=== PATIENT | female | born 1995 | race Two or more races ===

== ENCOUNTER → 2017-03-28 09:04 | Outpatient (CLI) | payer OTHER ==
--- NOTE | 2017-03-28 09:49 | NUR ---
NUTRITION EDUCATION FOR LEE: Pt and present for instruction of consistent CHO diet. Diet recall reveals pt is drinking a lot of juice and regular soda daily. Pt also drinks some sweet tea at times. Pt eats yogurt and does eat some nonstarchy vegetables most days. Pt is skipping meals due to nausea. Pt has had some extreme lows in the mornings due to not eating correctly. Reviewed CHO containing foods and the affect CHO have on glucose. Reviewed portion sizes of common CHO foods. Stressed the importance of consistent meals times to keep glucose under good control. Advised pt to eliminate all sugary drinks and drink only water to quench thrist. Also advised pt to eat an HS snack every night to, hopefully, prevent low glucose readings in the morning. Reviewed sample menus with emphasis on CHO foods and meal timing. Answered pts questions. Pt and spouse with good understanding of inforamtion provided. I think pt will be compliant with recommendations. Provided pt with printed diet information and RDN name and phone number. RDN will be available if needed. Thank you for the consult.
== END ==
LOC: D.FANS 09:00
DX: O24.919 Unspecified diabetes mellitus in pregnancy, unspecified trimester (principal)

== ENCOUNTER → 2017-05-01 14:05 | Outpatient (CLI) | payer OTHER ==
[2017-05-01 14:54] LABS: APPEARANCE CLEAR (CLEAR); BILIRUBIN NEGATIVE (NEGATIVE); COLOR YELLOW (YELLOW); GLUCOSE NEGATIVE (NEGATIVE); KETONE NEGATIVE (NEGATIVE); LEUKOCYTE ESTERASE NEGATIVE (NEGATIVE); NITRITE POSITIVE (NEGATIVE); PROTEIN NEGATIVE (NEGATIVE); SPECIFIC GRAVITY 1.005 (1.005-1.020); UROBILINOGEN NORMAL (NORMAL)
[2017-05-01 14:57] LABS: BACTERIA FEW /hpf (NONE SEEN); EPITHELIAL CELLS 0-5 /hpf (0-5); WHITE CELLS - URINE RARE /hpf (0-5)
== END | disposition home or self-care (01) ==
LOC: D.LDO 14:05
PROVIDERS: Obstetrics & Gynecology
DX: Z34.03 Encounter for supervision of normal first pregnancy, third trimester (principal); Z3A.34 34 weeks gestation of pregnancy

== ENCOUNTER → 2017-05-11 11:16 | Outpatient (CLI) | payer OTHER | END | disposition home or self-care (01) | LOC: D.LDO 11:16 | DX: O36.5930 Maternal care for other known or suspected poor fetal growth, third trimester, not applicable or unspecified (principal); Z3A.35 35 weeks gestation of pregnancy ==

== ENCOUNTER → 2020-02-24 15:48 | Outpatient (CLI) | payer OTHER | END | disposition home or self-care (01) | LOC: D.LDO 15:48 | PROVIDERS: ATTEND Obstetrics & Gynecology | DX: O24.419 Gestational diabetes mellitus in pregnancy, unspecified control (principal); Z3A.34 34 weeks gestation of pregnancy ==

== ENCOUNTER 2020-03-22 08:47 | Outpatient (CLI) | payer OTHER | END 2020-03-22 09:20 | disposition home or self-care (01) | LOC: D.LDO 08:47 | PROVIDERS: ATTEND Obstetrics & Gynecology | DX: O24.419 Gestational diabetes mellitus in pregnancy, unspecified control (principal); Z3A.33 33 weeks gestation of pregnancy ==

== ENCOUNTER 2020-03-29 09:44 | Outpatient (CLI) | payer OTHER | END 2020-03-29 10:35 | disposition home or self-care (01) | LOC: D.LDO 09:44 | PROVIDERS: ATTEND Obstetrics & Gynecology | DX: O24.419 Gestational diabetes mellitus in pregnancy, unspecified control (principal); Z3A.34 34 weeks gestation of pregnancy ==

== ENCOUNTER 2020-04-07 11:53 | Outpatient (CLI) | payer OTHER | END 2020-04-07 12:59 | disposition home or self-care (01) | LOC: D.LDO 11:53 | PROVIDERS: ATTEND Obstetrics & Gynecology | DX: O24.419 Gestational diabetes mellitus in pregnancy, unspecified control (principal); Z3A.35 35 weeks gestation of pregnancy ==

== ENCOUNTER 2020-04-13 11:45 | Outpatient (CLI) | payer OTHER | END 2020-04-13 12:14 | disposition home or self-care (01) | LOC: D.LDO 11:45 | PROVIDERS: ATTEND Obstetrics & Gynecology | DX: O24.419 Gestational diabetes mellitus in pregnancy, unspecified control (principal); Z3A.36 36 weeks gestation of pregnancy ==

== ENCOUNTER 2020-04-18 14:26 | Inpatient (IN) | payer OTHER ==
[~2020-04-18] VITALS: Ht 162.6 cm; Wt 101.6 kg
[2020-04-18 15:52] LABS: HEMATOCRIT 37.9 % (36.0-48.0); HEMOGLOBIN 12.1 g/dL (12-16); MCH 28.4 pg (26.0-34.0); MCHC 31.9 g/dL (31.0-37.0); MEAN PLATELET VOLUME 10.3 fL (7.4-10.4); RBC 4.26 10x6/uL (4.00-5.40); RDW 13.6 % (11.5-14.5); WBC 11.5 10x3/uL (4.8-10.8)
[2020-04-18 16:02] LABS: UDS - AMPHET NEGATIVE QUAL (NEGATIVE); UDS - BARB NEGATIVE QUAL (NEGATIVE); UDS - BENZO NEGATIVE QUAL (NEGATIVE); UDS - COCAINE NEGATIVE QUAL (NEGATIVE); UDS - OPIATE NEGATIVE QUAL (NEGATIVE); UDS - PCP NEGATIVE QUAL (NEGATIVE); UDS - THC NEGATIVE QUAL (NEGATIVE)
[2020-04-18] MEDS ORDERED: GLYBURIDE5 M1 PO (16:13)
[2020-04-18] MEDS ORDERED: PRENAVITE1 TAB PO (16:14)
[2020-04-18 20:08] VITALS: BP 107/63; Ht 162.6 cm; Wt 101.6 kg
--- NOTE | 2020-04-19 04:20 | NUR ---
ASSISTED PT UP TO BATHROOM, SHE DENIES ANY DIZZINESS WITH AMBULATION. GAVE PT PANTIES AND PADS, SHE DENIED ANY FURTHER NEEDS.
[2020-04-19 05:37] LABS: BASOPHILS 0.1 % (0-2); EOSINOPHILS 0.1 % (0-7); HEMATOCRIT 34.9 % (36.0-48.0); IMMATURE GRANULOCYTES 0.6 % (0-5); LYMPHOCYTES 13.5 % (15-50); MCH 27.8 pg (26.0-34.0); MCHC 31.5 g/dL (31.0-37.0); MCV 88.4 fL (80.0-100.0); MEAN PLATELET VOLUME 10.3 fL (7.4-10.4); MONOCYTES 4.8 % (2-11); NEUTROPHILS 80.9 % (40-80); PLATELET COUNT 294 10x3/uL (130-400); RBC 3.95 10x6/uL (4.00-5.40); RDW 13.5 % (11.5-14.5)
[2020-04-19 05:57] LABS: WBC 16.1 10x3/uL (4.8-10.8)
--- NOTE | 2020-04-19 07:17 | NUR ---
BEDSIDE REPORT REC'D FROM Lois COPELAND RN. PT REC'D RESTING WITH EYES CLOSED, EASILY AROUSES TO VOICE. DENIES NEEDS. STATES THAT INFANT WILL FEED IN 15 MINUTES AND REQUEST ASSESSMENT BE DONE AT THAT TIME. DENIES NEEDS AT THIS TIME. BED IN LOW POSITION WITH SRUP X2. CALL LIGHT AND PHONE WITHIN REACH. WILL CONTINUE TO MONITOR.
[2020-04-19 08:19] VITALS: BP 115/6
--- NOTE | 2020-04-19 08:19 | NUR ---
VSS. FUNDUS FIRM MIDLINE AND U2 WITH SMALL AMT RUBRA LOCHIA, NO CLOTS NOTED. CHOCOLATE MILK REQUESTED PER PT REQUEST AND MOTRIN PROVIDED FOR C/O ABD PAIN 01/24. DENIES ADDITIONAL NEEDS. BED IN LOW POSITION WITH SRUP X2. CALL LIGHT AND PHONE WITHIN REACH. WILL CONTINUE TO MONITOR.
[2020-04-19 09:32] VITALS: BP 110/67
--- NOTE | 2020-04-19 09:32 | NUR ---
PT SITTING UP IN BED. VSS. HRRR WITHOUT AUDIBLE MURMUR. BBS CLEAR. BS X 4. ABDOMEN SOFT/NON-DISTENDED. FUNDUS FIRM AT U/2. RUBRA LOCHIA MOD AMT. NO CLOTS EXPRESSED. PERINEUM WITHOUT EDEMA. NEG HOMANS' SIGN. PPP. MILD, NON-PITTING EDEMA NOTED TO BLE. SL SITE CLEAR. PT STATES ABDOMINAL CRAMPING OF "2" ON 0-10 PAIN SCALE. STATES FEELING BETTER SINCE RECEIVING MOTRIN. PT DENIES NEEDS OR C/O. SR UP X 2. CALL LIGHT IN REACH.
--- NOTE | 2020-04-19 11:30 | NUR ---
PT SITTING UP IN BED. CARING FOR INFANT. DENIES PAIN OR NEEDS.
--- NOTE | 2020-04-19 12:47 | NUR ---
DR OCONNELL VISITS WITH PT.
--- NOTE | 2020-04-19 13:01 | NUR ---
PT UP TO SHOWER. LINENS CHANGED.
--- NOTE | 2020-04-19 14:00 | NUR ---
PT SITTING UP IN BED. PUMPING BREASTMILK AT THIS TIME. DENIES C/O. REQUESTS AND RECEIVES ICE WATER.
[2020-04-19 16:17] VITALS: BP 109/67
--- NOTE | 2020-04-19 16:24 | NUR ---
PT LYING IN SEMI-DAUGHERTY'S POSITION IN BED. AWAKE. VSS. FUNDUS FIRM AT U/2. RUBRA LOCHIA SMALL AMT. C/O ABDOMINAL CRAMPING. MOTRIN 600 MG GIVEN PO ORDERED. PT INSTRUCTED ON MED. VERBALIZES UNDERSTANDING.
--- NOTE | 2020-04-19 18:10 | NUR ---
PT SITTING UP IN BED. CARING FOR INFANT. DENIES C/O OR NEEDS.
[2020-04-19 19:30] VITALS: BP 103/66
--- NOTE | 2020-04-19 19:30 | NUR ---
pt resting quietly in bed, denies any pain rates 0/10. awake and alert. lung sounds clear bilaterally, heart rate regular, abd soft, fundus firm 2 fb below um, with small amt of rubra lochia. no pedal swelling. VSS. at bedside along with family.
--- NOTE | 2020-04-19 22:43 | NUR ---
pt continues resting denies any needs or complaints. currently pumping breast.
--- NOTE | 2020-04-20 01:22 | NUR ---
pt resting quietly with eyes closed, no distress noted.
--- NOTE | 2020-04-20 04:28 | NUR ---
pt sitting up quietly tending to , denies any needs or requests.
--- NOTE | 2020-04-20 06:00 | NUR ---
Pt awake, c/o cramping Motrin 600 mg given for discomfort. fasting blood glucose 84.
[2020-04-20 06:06] LABS: BASOPHILS 0.2 % (0-2); EOSINOPHILS 0.8 % (0-7); HEMATOCRIT 38.1 % (36.0-48.0); HEMOGLOBIN 12.2 g/dL (12-16); IMMATURE GRANULOCYTES 0.5 % (0-5); LYMPHOCYTES 32.6 % (15-50); MCH 28.3 pg (26.0-34.0); MCV 88.4 fL (80.0-100.0); MEAN PLATELET VOLUME 10.1 fL (7.4-10.4); MONOCYTES 4.7 % (2-11); NEUTROPHILS 61.2 % (40-80); PLATELET COUNT 289 10x3/uL (130-400); RBC 4.31 10x6/uL (4.00-5.40); RDW 13.8 % (11.5-14.5); WBC 11.1 10x3/uL (4.8-10.8)
[2020-04-20 06:10] LABS: RAPID PLASMA REAGIN Non Reactive (Non Reactive)
[2020-04-20 07:36] VITALS: BP 117/78
--- NOTE | 2020-04-20 07:45 | NUR ---
ASSESSMENT COMPLETE. PT SITTING UP IN BED- VERBAL RESPONSES APPRO TO QUESTIONS. FUNDUS U2/FIRM. SCANT LOCHIA NOTED ON PAD. STATES IS VOIDING WITHOUT PROBLEMS AND HAS HAD BM. DENIES NEEDS -NO REQUESTS. AT BEDSIDE.
--- NOTE | 2020-04-20 08:55 | NUR ---
DR OCONNELL HERE TO SEE PT.
--- NOTE | 2020-04-20 09:41 | NUR ---
SALINE LOCK REMOVED WITH CATH TIP INTACT. PRESSURE HELD AND BANDAIDE APPLIED.
--- NOTE | 2020-04-20 12:32 | NUR ---
DISCHARGE INST VERBAL AND WRITTEN GIVEN. PFW AND AWHONN INSTRUCTIONS GIVEN. SEE ALSO SIGNED INFO SHEET FOR INFORMATION GIVEN. PT HEALTH SUMMARY GIVEN. PT MOTHER HAS BROUGHT IBUPROFEN AND PT VERBALLY INST ON USE IF NEEDED FOR PAIN. ROOM IN SIGN SHEET GIVEN TO PT TO REVIEW. DENIES QUESTIONS AT THIS TIME.
--- NOTE | 2020-04-20 12:55 | NUR ---
PT STATES UNDERSTANDS ROOMING IN POLICY AND AGREES. DENIES QUESTIONS CONCERNING POLICY.
--- NOTE | 2020-04-20 14:50 | NUR ---
PT STATES THAT SHE IS READY FOR ROOM IN STATUS. WILL REMAIN IN SAME ROOM. ICE WATER GIVEN. LINENS CHANGED. DENIES OTHER NEEDS. CHANGED TO ROOM IN STATUS.
== END 2020-04-20 15:06 | disposition home or self-care (01) | DRG 998 ==
LOC: D.LDO 14:26 → D.LD 15:22
PROVIDERS: ADMIT Student in an Organized Health Care Education/Training Program; ATTEND Student in an Organized Health Care Education/Training Program
PROC: 10E0XZZ Delivery of Products of Conception, External Approach (ICD-10-PCS; principal; 2020-04-18)
DX: O24.429 Gestational diabetes mellitus in childbirth, unspecified control (principal); Z3A.37 37 weeks gestation of pregnancy; O69.81X0 Labor and delivery complicated by cord around neck, without compression, not applicable or unspecified; O69.2XX0 Labor and delivery complicated by other cord entanglement, with compression, not applicable or unspecified